=== PATIENT | female | born 2000 | race African-American/Black ===

== ENCOUNTER 2018-03-19 00:23 | Emergency (ER) | payer OTHER ==
[~2018-03-19] VITALS: Ht 160 cm; Wt 98.0 kg
[2018-03-19 04:45] VITALS: BP 117/65
== END 2018-03-19 04:45 | disposition home or self-care (01) ==
LOC: ER 00:23
DX: S60.221A Contusion of right hand, initial encounter (principal); F17.200 Nicotine dependence, unspecified, uncomplicated; F12.10 Cannabis abuse, uncomplicated; W22.8XXA Striking against or struck by other objects, initial encounter; Y93.89 Activity, other specified; Y92.89 Other specified places as the place of occurrence of the external cause; Y99.8 Other external cause status
CPT/HCPCS: 73130; 81025; 99284; Z7610